=== PATIENT | male | born 1935 | race Caucasian/White ===

== ENCOUNTER → 2017-05-29 | Outpatient (CLI) | payer OTHER | LOC: BRMIMAGING 10:33 | PROVIDERS: ATTEND Registered Nurse | DX: R05 Cough (principal); R91.8 Other nonspecific abnormal finding of lung field | CPT/HCPCS: 71020-PO ==

== ENCOUNTER → 2017-09-10 | Outpatient (CLI) | payer OTHER | LOC: BRMIMAGING 10:29 | PROVIDERS: ATTEND Family Medicine | DX: R51 Headache (principal); Z80.7 Family history of other malignant neoplasms of lymphoid, hematopoietic and related tissues | CPT/HCPCS: 70260-PO ==

== ENCOUNTER 2018-04-03 16:12 | Inpatient (IN) | payer OTHER ==
--- NOTE | 2018-04-03 16:31 | EDPHY ---
HPI/HX/ROS/PE/MDM Narrative: CHIEF COMPLAINT: Dyspnea, hypoxemia HPI: The patient is an 82 y/o male arriving with his at the recommendation of his water main inspector for hypoxemia and pleural effusions seen on CT last week. His medical history includes CAD post stent, hypertension, diabetes type 2, and myelodysplastic syndrome for which he started chemotherapy 3 weeks ago. His chemotherapy is currently suspended due to a low WBC count. He's had increasing shortness of breath over the last few weeks so his oncologist at [facility] performed a chest CT last week. This showed bilateral plural effusions and he was referred to his water main inspector, Dr. Gamble, who he saw today. During that visit they noted his SpO2 was 84% and given this with his abnormal CT he was referred to the ED. He says, "I feel okay, but I can't do anything without getting very short of breath" like walking to the bathroom. Prior to these symptoms, he only used O2 at night and is now requiring it during the day. He reports associated bilaterally foot swelling. He started 20mg Lasix QD 3 days ago and has dropped some weight since then. No cough, fever, chest pain, abdominal pain, vomiting, diarrhea. REVIEW OF SYSTEMS: A comprehensive 10 system review of systems is otherwise negative aside from elements mentioned in the history of present illness. PMH: CAD post distal stent, hypertension, diabetes type 2, lower GI bleed following polypectomy, bipolar disorder, myelodysplastic syndrome on chemotherapy. SOCIAL HISTORY: at bedside. Lives in [place]. Retired. PHYSICAL EXAM: General:Patient is alert, in no acute distress. ENT:Eyes are normal to inspection. ENT inspection normal. Neck: Normal inspection. Full range of motion. Respiratory:No respiratory distress. No wheeze or rales and good movement bilaterally. Cardiovascular: Regular rate and rhythm. Strong peripheral pulses. Normal cap refill. Abdomen:The abdomen is nontender to palpation. There are no peritoneal signs. Back: Normal to inspection. No tenderness to palpation. Skin: Normal color. No rash. Warm and dry. Extremities: 1-2+ pedal edema bilaterally. Full range of motion. Neuro: Oriented x3. Normal motor function. Normal sensory function. ED Course: This is an 82 y/o male with myelodysplastic syndrome who started chemotherapy 3 weeks ago and presents with a couple-week history of progressive exertional dyspnea, documented bilateral pleural effusions on CT last week, and hypoxemia in the 80%-range at his water main inspector appointment today. He otherwise denies symptoms. Lung sounds are clear bilaterally. Plan for IV, labs, EKG, chest x- ray. The 12 lead EKG was interpreted by myself. See hard copy and/or "tracemaster" electronic copy for interpretation. Chest x-ray: bilateral basilar effusions. POC troponin negative. Pancytopenia. Spoke with hospitalist service. Dr. Lorenzana accepts admission. - Data Points Imaging Results: Imaging Impressions Chest X-Ray 04/03/18 16:37 Impression: Query basilar pneumonia with pleural effusions. The patient's cardiac failure is currently compensated. Imaging: I viewed and interpreted images myself Laboratory Results: Laboratory Results 04/03/18 16:35 04/03/18 16:35 04/03/18 04/03/18 04/03/18 16:45 16:35 16:35 WBC 2.10 10^3/uL L 10^3/uL (3.80-9.50) RBC 2.30 10^6/uL L 10^6/uL (4.40-6.38) Hgb 8.6 g/dL L g/dL (13.7-17.5) Hct 26.6 % L % (40.0-51.0) MCV 115.7 fL H fL (81.5-99.8) MCH 37.4 pg H pg (27.9-34.1) MCHC 32.3 g/dL L g/dL (32.4-36.7) RDW 18.4 % H % (11.5-15.2) Plt Count 95 10^3/uL L 10^3/uL (150-400) MPV 12.8 fL H fL (8.7-11.7) Neut % (Auto) Not Reported Lymph % (Auto) Not Reported [place] % (Auto) Not Reported Eos % (Auto) Not Reported Baso % (Auto) Not Reported Nucleat RBC Rel Count Not Reported Absolute Neuts (auto) Not Reported Absolute Lymphs (auto) Not Reported Absolute Monos (auto) Not Reported Absolute Eos (auto) Not Reported Absolute Basos (auto) Not Reported Absolute Nucleated RBC Not Reported Immature Gran % Not Reported Seg Neutrophils % 42.3 % % Band Neutrophils % 0.0 % % Lymphocytes % 39.8 % % Monocytes % 18.5 % % Eosinophils % 0.0 % % Basophils % 0.0 % % Immature Gran # Not Reported Absolute Seg Neuts 0.89 10^/uL L 10^/uL (1.70-6.50) Absolute Lymphocytes 0.82 10^3/uL L 10^3/uL (1.00-3.00) Absolute Monocytes 0.39 10^3/uL 10^3/uL (0.30-0.80) Platelet Estimate ADEQUATE (ADEQ) Giant Platelets PRESENT H Polychromasia 2+ H Oval Macrocytes 2+ H Smear Review By Pending Sodium 138 mEq/L mEq/L (135-145) Potassium 4.0 mEq/L mEq/L (3.3-5.0) Chloride 102 mEq/L mEq/L (97-110) Carbon Dioxide 31 mEq/l mEq/l (22-31) Anion Gap 5 mEq/L L mEq/L (8-16) BUN 13 mg/dL mg/dL (7-23) Creatinine 0.8 mg/dL mg/dL (0.7-1.3) Estimated GFR > 60 Glucose 100 mg/dL mg/dL (70-100) Calcium 8.2 mg/dL L mg/dL (8.5-10.4) POC Troponin I 0.02 ng/mL ng/mL (0.00-0.08) Troponin I 0.014 ng/mL ng/mL (0.000-0.034) Point of Care Test Results: Chemistry 04/03/18 16:45 POC Troponin I 0.02 ng/mL ng/mL (0.00-0.08) General Time Seen by Provider: 04/03/18 16:28 Initial Vital Signs: Initial Vital Signs Temperature (C) 37 C 04/03/18 16:18 Heart Rate 54 L 04/03/18 16:18 Respiratory Rate 20 04/03/18 16:18 Blood Pressure 139/100 H 04/03/18 16:18 O2 Sat (%) 90 L 04/03/18 16:18 O2 Delivery Mode Nasal Cannula O2 (L/minute) 2 Allergies/Adverse Reactions: celecoxib [From Celebrex] Allergy (Verified 04/03/18 16:13) oxycodone HCl [From Percocet] Allergy (Verified 04/03/18 16:13) Home Medications: Medication Instructions Recorded Aspirin [Aspirin 81mg (*)] 81 mg PO HS 10/26/15 Nebivolol HCl [Bystolic] 10 mg PO BID@08,12 10/26/15 risperiDONE [Risperdal 1mg (*)] 1 mg PO HS 10/26/15 Androgel 1.62% Pump 1 desmond TP HS 04/03/18 Cyanocobalamin [Vitamin B12 (*)] 1,000 mcg PO DAILY 04/03/18 Donepezil HCl [Aricept 5 MG (*)] 5 mg PO HS 04/03/18 Furosemide [Lasix 20 MG (*)] 20 mg PO DAILY 04/03/18 Herbals/Supplements -Info Only 1 ea PO DAILY 04/03/18 Losartan Potassium 100 mg PO DAILY 04/03/18 Memantine HCl 10 mg PO BID 04/03/18 Multivitamins [Multivitamin (*)] 1 each PO DAILY 04/03/18 Nitroglycerin [Nitrostat 0.4 mg 0.4 mg SL Q5M PRN 04/03/18 (*)] Potassium Cl [Klor-Con] 10 meq PO DAILY 04/03/18 Ranitidine HCl 300 mg PO HS 04/03/18 Departure - Departure Disposition: [facility] Clinical Impression: Pancytopenia, Exertional dyspnea, Bilateral pleural effusion, Hypoxemia Condition: Fair Report Scribed for: Campbell Pagan Report Scribed by: Meche Regan Date of Report: 04/03/18 Time of Report: 16:31
[2018-04-03 17:28] LABS: PLATELET COUNT 95 10^3/uL (150-400)
[2018-04-03] MEDS ORDERED: ONDANSETRON 4 MG/2 ML VIAL IVP PRN (21:33)
[2018-04-03] MEDS ORDERED: ONDANSETRON DISINTEGRATING 4 MG TAB PO PRN (21:33)
--- NOTE | 2018-04-03 21:35 | CPEKG ---
Test Reason : OPEN Blood Pressure : / mmHG Vent. Rate : 056 BPM Atrial Rate : 056 BPM P-R Int : 153 ms QRS Dur : 099 ms QT Int : 443 ms P-R-T Axes : 068 017 044 degrees QTc Int : 428 ms Sinus rhythm Confirmed by Campbell Pagan ([id number]) on 04/03/2018 9:34:06 PM Referred By: Confirmed By:Campbell Pagan
[2018-04-03] MEDS ORDERED: FAMOTIDINE 20 MG TAB PO SCH (22:00)
[2018-04-03] MEDS: DONEPEZIL HCL 5 MG TAB PO SCH (22:15)
[2018-04-03] MEDS: ASPIRIN 81 MG CHEWABLE TAB PO SCH (22:15)
[2018-04-03] MEDS: risperiDONE 1 MG TAB PO SCH ×2 (22:16→22:24)
[2018-04-03] MEDS: MEMANTINE HCL 5 MG TAB PO SCH (22:16)
--- NOTE | 2018-04-03 23:05 | GHP ---
DATE OF ADMISSION: 04/03/2018 The patient is a pleasant 82-year-old gentleman with a history of myelodysplastic syndrome as well as remote coronary artery disease, who presents to the ER via his state trooper's office. He has recent ly been initiated chemotherapy for MDS. With his oncologist in the [facility], the exact regimen i s unknown and the recent round was held because of low cell count. He notes dyspnea on exertion, deya lly predominantly where he feels as if every time he would get up and walk from 1 room to another in the house, after a few steps, like he had run a 100 yard dash. He has not had chest pain. He has ne w lower extremity edema and he has been prescribed Lasix over the last couple of days. He does not h ave fever, chills, cough, or sputum. He was seen by his oncologist recently and on the , he had a CT scan showing large pleural effusions. I believe this was the cause for the initiation of Lasix. The heretofore does not have a known diagnosis of heart failure and I did discuss the case with his c ardiologist, Dr. Gamble, this evening. He has not had melena or bright red blood per rectum. Notably, his heart rate is in the 50s and his hemoglobin has fallen from 14 a couple of years ago to 8.6. REVIEW OF SYSTEMS: A complete 10-point review of systems conducted and negative except as noted in t he HPI. PAST MEDICAL HISTORY: 1. Coronary artery disease with remote stent. 2. Myelodysplastic syndrome. 3. Lower GI bleed from a polypectomy site. 4. History of colon polyps. 5. Type 2 diabetes, diet controlled. 6. Bipolar. 7. Hypertension. 8. History hand surgery. 9. Tonsillectomy. ALLERGIES: Celebrex. MEDICATIONS: Nebivolol, nitroglycerin, AndroGel, aspirin, cyanocobalamin, donepezil, furosemide, [place], memantine, multivitamin, potassium, ranitidine, risperidone. SOCIAL HISTORY: No tobacco, no alcohol. 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 Lives in [place]. FAMILY HISTORY: Daughter is at bedside and healthy. PHYSICAL EXAMINATION: VITAL SIGNS: Temp 37, blood pressure 139/100, now 147/53, pulse 54, breathing 20 times a minute, 90% on room air. GENERAL: No acute distress. HEENT: Sclerae anicteric. Oroph arynx clear. Mucous membranes moist. NECK: Supple without lymphadenopathy or JVD. LUNGS: Clear t o auscultation bilaterally. HEART: S1, S2 without murmurs. ABDOMEN: Soft, nontender, nondistended . LOWER EXTREMITIES: Showed 2+ edema bilaterally. Calves are nontender. SKIN: Without rash. BISI ROLOGIC: Exam is nonfocal. Chest x-ray interpreted by me shows very small left-sided pleural effusion. Otherwise, no acute card iopulmonary disease. EKG interpreted by me shows sinus at 56 with normal axis and intervals and no ST or T-wave changes. LABS: White count 2, hemoglobin 8.6, MCV elevated at 115, platelets are 95,000. Sodium 138, potassi um 4.0, chloride 102, bicarb 31, BUN 13, creatinine 0.8. Troponin 0.014, calcium is 8.2. I discussed the case with Dr. Campbell Pagan as well as his state trooper. ASSESSMENT/PLAN: An 82-year-old gentleman here with: 1. Dyspnea: There is a long differential for this that includes congestive heart failure, ischemia, pulmonary embolism. I do think that the most likely diagnosis is in the context of his new hemoglob in of 8.6, his heart rate of 50s is inadequate. I think pulmonary embolism needs to be ruled out and I have therefore ordered a CT angio of the chest and we will follow him on telemetry to ensure that there is no coleman or tachyarrhythmias. 2. Myelodysplastic sydnrome: Chemotherapy is on hold. His counts do not require action at this carmel e. 3. Pleural effusion: This is small and not the cause. I explained this to the patient. 4. Anemia: I do not believe the patient is actively bleeding. However, we will follow his labs in the morning. 5. Prophylaxis SCDs: Pharmacologic prophylaxis is on hold. 6. Edema: I will check an albumin and an echocardiogram. We will hold off on the lower extremity u ltrasound at this time. DISPOSITION: Observation status. /[id number]/MODL
[2018-04-04 05:09] LABS: INR 1.17 (0.83-1.16); PROTIME(PATIENT) 15.1 SEC (12.0-15.0)
[2018-04-04 05:25] LABS: PLATELET COUNT 80 10^3/uL (150-400)
[2018-04-04] MEDS: LOSARTAN POTASSIUM 50 MG TAB PO SCH (08:29)
[2018-04-04] MEDS: MULTIVITAMINS 1 EACH TAB PO SCH (08:29)
[2018-04-04] MEDS: POTASSIUM CL 10 MEQ TAB PO SCH (08:29)
[2018-04-04] MEDS: MEMANTINE HCL 5 MG TAB PO SCH ×2 (08:29→21:14)
[2018-04-04] MEDS: CYANO/VITAMIN B12 1000 MCG TAB PO SCH (08:29)
[2018-04-04] MEDS ORDERED: Herbals/Supplements -Info Only PO SCH (09:00)
[2018-04-04] MEDS ORDERED: FUROSEMIDE 20 MG TAB PO SCH (09:00)
[2018-04-04] MEDS ORDERED: IOPAMIDOL (ISOVUE 370) 100 ML BTL IV ONE (10:05)
--- NOTE | 2018-04-04 10:29 | ECHO ---
[email or web address] [address] [address] Main: [phone] Fax: [email or web address] Echocardiogram Name: NICOLE MORAN MR#: [id number] Study Date: 04/04/2018 Study Time: 09:24 AM Date of : 1935 Age: 82 year(s) Height: 182.9 cm (72 in.) Weight: 97.98 kg (216 lb.) BSA: 2.2 m2 Gender: Male Examination: Echo Indication: Coronary artery disease, Dyspnea on exertion Image Quality: Technically Difficult Contrast: Requested by: Giorgio Lorenzana BP: 150 mmHg/70 mmHg Heart Rate: Rhythm: Indication: Coronary artery disease, Dyspnea on exertion Procedure Staff Peer Health Promoter: Bebe Hong RUST Reading Physician: Jake Gibson MD Requesting Provider: Conclusions: Normal size left ventricle. Normal global systolic LV function. The ejection fraction is visually estimated to be 55 %. No obvious regional wall motion abnormality however due to poor endocardial cannot rule out. Normal diastolic LV function. Mild mitral valve regurgitation is present. Aortic sclerosis is present. Trivial aortic valve regurgitation. No aortic valve stenosis is present. Trivial tricuspid valve regurgitation. Pulmonary artery pressure is not obtained due to inadequate TR jet. Measurements: Chambers Valvular Assessment AV/MV Valvular Assessment TV/PV Normal Normal Normal Name Value Range Name Value Range Name Value Range Ao [place] (MM): 3.6 cm (2.2 cm-3.7 AV Vmax: 1.61 m/s (1 m/s-1.7 PV Vmax: 1.06 m/s (0.6 m/s-0.9 cm) m/s) m/s) IVSd (2D): 1.0 cm (0.6 cm-1.1 AV maxP mmHg ( - ) PV PGmax: 4 mmHg ( - ) cm) LVOT Vmax: 0.91 m/s (0.7 m/s-1.1 LVDd (2D): 4.7 cm (4.2 cm-5.9 m/s) cm) DANIEL (Vmax): 1.8 cm2 ( - ) LVDs (2D): 3.0 cm (2.1 cm-4 MV E Vmax: 1.01 m/s ( - ) cm) MV A Vmax: 0.84 m/s ( - ) LVPWd (2D): 1.0 cm (0.6 cm-1 MV E/A: 1.20 ( - ) cm) LVOTd 2.0 cm 2.0 cm mm LVEF (MOD4): 53 % (>=55 %) Visual EF: 55 % RVDd(2D): 3.9 cm (1.9 cm-3.8 cmmm) Patient: NICOLE MORAN Study Date: 04/04/2018 Page 1 of 2 09:24 AM Continued Measurements: Chambers Valvular Assessment AV/MV Name Value Name Value LADs: 3.3 cm MV DecTime: 208 m/s LADs Lon.3 cm MV E/E' Septal: 12.50 LA Area: 23.5 cm2 MV E/E' Lateral: 8.00 TAPSE: 2.9 cm Additional Vessels Name Value Ao Ascendin.7 cm Findings: Left Ventricle: Normal size left ventricle. No LV hypertrophy. Normal global systolic LV function. The ejection fraction is visually estimated to be 55 %. No obvious regional wall motion abnormality however due to poor endocardial cannot rule out. Normal diastolic LV function. Right Ventricle: Right ventricle is normal size and function from the subcostal window. Left Atrium: The left atrium is normal in size. Right Atrium: Grossly normal RA size. Mitral Valve: There is mild thickening of the mitral valve leaflets. Mild mitral valve regurgitation is present. No mitral stenosis is present. Aortic Valve: The aortic valve is tri-leaflet. Aortic sclerosis is present. Trivial aortic valve regurgitation. No aortic valve stenosis is present. Tricuspid Valve: Tricuspid valve not well visualized. Trivial tricuspid valve regurgitation. Pulmonary artery pressure is not obtained due to inadequate TR jet. Pulmonic Valve: Pulmonary valve not well visualized. Aorta: Normal size aortic root measuring 3.6 cm. Normal size ascending aorta measuring 3.7 cm. IVC: The IVC is dilated. Pericardium: No pericardial effusion. There is a pleural effusion present. (No Signature Object) Patient: NICOLE MORAN Study Date: 04/04/2018 Page 2 of 2 09:24 AM [id number]
[2018-04-04] MEDS ORDERED: ALBUMIN 25% 100 ML IV ONE (14:15)
--- NOTE | 2018-04-04 14:39 | HOSPPROG ---
Hospitalist Progress Note Assessment/Plan: Dyspnea with acute on chronic hypoxemia respiratory failure - On 2 LPM O2 at night. Recent outpt CT and CTA here (personally reviewed/interpreted) show mod- lg b/l pleural effusions. No PE. Worsening anemia may be contributing to his dyspnea. Also consider cardiac ischemia given h/o CAD with prior stent and BLAKE. Initial trop neg. He was to have a nuclear stress test 2 days [facility], but this was deferred as pt was hypoxemic. Echo reviewed: nl ef, nl diastolic function, no WMA. - requiring 1 LPM O2 at rest, 2 LPM with activity, currently relatively asymptomatic - check bnp - Lasix 20 mg IV now Pleural effusions - b/l, R>L. Suspect transudative process. Hypoalbuminemia doesn't commonly cause pleural fluid, but this is possibly the cause. Also consider malignant effusion vs diastolic HF. Echo as above. - send bnp - Lasix as above - relatively asymptomatic, will defer thoracentesis for now - O2 as needed LE edema - likely due to hypoalbuminemia - discussed increased protein intake - will give a dose of IV albumin while here Pancytopenia - suspect 2/2 chemo, hgb down to 7.7 from 8.6 yesterday. Plts trending down. No hypotension, HR only in the 50's - consider prbc's if hgb continues to trend down, which may help improve his protein status and symptoms Neutropenia - ANC ~500, no fevers - neutropenic precautions Myelodysplastic syndrome - chemo on hold due to neutropenia. Will notify oncology of admission. CAD with h/o PCI - chest pain free. Initial troponin negative, EKG reviewed and non-ischemic. - repeat trop - outpt stress test - cont ASA, OZIEL, statin, BB held due to anemia and low HR Full code DVT PPLX - Defer Lovenox with low plts and low hgb, SCDs for now Dispo - inpt, PT/OT evals Subjective: Pt feels ok at rest, denies CP or SOB. Gets dyspneic with exertion , did not require >2 LPM O2 while ambulating with PT. No bleeding. No abdominal pain, N/V. Reports LE edema x2 weeks. Objective: Vital Signs Temp Pulse Resp BP Pulse Ox 36.5 C 54 L 18 164/62 H 100 04/04/18 11:21 04/04/18 11:21 04/04/18 11:21 04/04/18 11:21 04/04/18 11:21 Laboratory Results 04/04/18 04:08 04/04/18 04:08 04/03/18 04/04/18 04/05/18 05:59 05:59 05:59 Intake Total 500 Balance 500 PT 15.1 SEC (12.0-15.0) H 04/04/18 04:30 INR 1.17 (0.83-1.16) H 04/04/18 04:30 - Physical Exam Constitutional: no apparent distress Eyes: PERRL Ears, Nose, Mouth, Throat: moist mucous membranes Cardiovascular: regular rate and rhythym Respiratory: no respiratory distress, other (decreased at bases b/l) Skin: warm Musculoskeletal: full muscle strength, other (2+ b/l LE edema) Neurologic: AAOx3 Psychiatric: interacting appropriately ICD10 Worksheet Patient Problems: Problems Problem Status Onset Bilateral pleural effusion Acute Exertional dyspnea Acute Hypoxemia Acute Pancytopenia Acute Lower gastrointestinal hemorrhage Acute
[2018-04-04] MEDS: FUROSEMIDE 20 MG/2 ML VIAL IVP SCH (14:46)
--- NOTE | 2018-04-04 15:57 | ASMTCMCOM ---
CM Note CM Note Notes: Pt was admitted with dyspnea, neutropenia and bilateral pleural effusion. He has a hx of myelodysplastic syndrome. His chemo is on hold, last treatment 3 weeks ago. May need home care. He lives alone in [place]. CM will follow for any d/c needs. D/C plan: TBD, likely home care Date Signed: 04/04/2018 03:56 PM Electronically Signed By:KT Rios
[2018-04-04] MEDS: ASPIRIN 81 MG CHEWABLE TAB PO SCH (21:14)
[2018-04-04] MEDS: FAMOTIDINE 20 MG TAB PO SCH (21:14)
[2018-04-04] MEDS: DONEPEZIL HCL 5 MG TAB PO SCH (21:14)
[2018-04-04] MEDS: risperiDONE 1 MG TAB PO SCH (21:14)
[2018-04-04] MEDS: ACETAMINOPHEN 325 MG TAB PO PRN (21:15)
[2018-04-04] MEDS: TESTOSTERONE 1.62% TP SCH (21:17)
[2018-04-05 05:48] LABS: PLATELET COUNT 78 10^3/uL (150-400)
[2018-04-05] MEDS: CYANO/VITAMIN B12 1000 MCG TAB PO SCH (08:00)
[2018-04-05] MEDS: FUROSEMIDE 20 MG/2 ML VIAL IVP SCH (08:00)
[2018-04-05] MEDS: MULTIVITAMINS 1 EACH TAB PO SCH (08:00)
[2018-04-05] MEDS: POTASSIUM CL 10 MEQ TAB PO SCH (08:00)
[2018-04-05] MEDS: MEMANTINE HCL 5 MG TAB PO SCH ×2 (08:00→20:00)
[2018-04-05] MEDS: LOSARTAN POTASSIUM 50 MG TAB PO SCH (08:00)
--- NOTE | 2018-04-05 09:24 | PDMN ---
Medical Necessity Medical necessity: [facility] M540 Pleural Effusion: 82 y/o w/ myelodysplastic syndrome presents w/ dyspnea, pleural effusion and anemia. Dyspnea with acute on chronic hypoxemia respiratory failure - oxygen required. Recent outpt CT and CTA here show mod-lg b/l pleural effusions (malignant vs. HF). Worsening anemia, consider cardiac ischemia. Hypoalbuminemia, admin IV albumin, start lasix, neutropenic wbc 1.71, neutropenic precautions, plt, wbc and H/H trending down, H/H now 7.6/23.2 (dropped overnight), BNP elevated 3230, O2 required, PT/ OT evals ordered, Pt w/ hx CAD. Switch to IP status per MD order 04/04/18 @ 8808 for ongoing monitoring and treatment.
--- NOTE | 2018-04-05 10:09 | HOSPPROG ---
Hospitalist Progress Note Assessment/Plan: Dyspnea with acute on chronic hypoxemia respiratory failure - On 2 LPM O2 at night at baseline. CTA neg PE, but suspect moderate b/l pleural effusions are contributory. Worsening anemia also likely factor. Consider cardiac ischemia given h/o CAD with prior stent and BLAKE. Initial trop neg. He was to have a nuclear stress test 2 days [employer], but this was deferred as pt was hypoxemic. Echo reviewed: nl ef, nl diastolic function, no WMA. BNP >3K. Symptoms improved today. - 2 LPM, RT to see to help arrange portable O2 - cont IV Lasix - will give 1 u prbc's given down-trending hgb and CAD - cont to hold BB, symptoms are improved with better HR response Pleural effusions - b/l, R>L. Suspect transudative process. Hypoalbuminemia doesn't commonly cause pleural fluid, but this could be the cause. Also consider malignant effusion vs diastolic HF with elevated BNP. Echo as above. - cont Lasix - defer thoracentesis for now, favor diuresis - wean O2 as able LE edema - likely due to hypoalbuminemia - discussed increased protein intake - received IV albumin yesterday - prbc's will likely help maintain intravascular volume Pancytopenia - suspect 2/2 chemo, hgb down to 7.6 from 8.6. Plts trending down. No hypotension, HR only in the 50's - prbc's as above - trend plts Neutropenia - ANC ~490, no fevers - neutropenic precautions Myelodysplastic syndrome - chemo on hold due to neutropenia. Will notify oncology of admission. CAD with h/o PCI - chest pain free. troponin negative x2, EKG reviewed and non- ischemic. - f/u with cards for outpt stress test, discussed with Dr. Callahan - cont ASA, OZIEL, statin, BB held due to anemia and low HR Full code DVT PPLX - Defer Lovenox with low plts and low hgb, SCDs for now Dispo - inpt, PT/OT evals recommending home health Subjective: Pt feels better. His HR went up to the 60's with ambulation and his BLAKE is improved. Still with LE edema. Denies orthopnea or PND. No CP or SOB at rest. Objective: Vital Signs Temp Pulse Resp BP Pulse Ox 36.4 C 56 L 21 H 128/50 H 96 04/05/18 09:25 04/05/18 09:25 04/05/18 09:25 04/05/18 09:25 04/05/18 09:25 Laboratory Results 04/05/18 04:20 04/05/18 04:20 04/04/18 04/05/18 04/06/18 05:59 05:59 05:59 Intake Total 800 300 Balance 800 300 PT 15.1 SEC (12.0-15.0) H 04/04/18 04:30 INR 1.17 (0.83-1.16) H 04/04/18 04:30 - Physical Exam Constitutional: no apparent distress Eyes: PERRL Ears, Nose, Mouth, Throat: moist mucous membranes Cardiovascular: regular rate and rhythym Respiratory: no respiratory distress, clear to auscultation Gastrointestinal: normoactive bowel sounds, soft, non-tender abdomen Skin: warm Musculoskeletal: full muscle strength, other (2+ b/l LE edema) Neurologic: AAOx3 Psychiatric: interacting appropriately ICD10 Worksheet Patient Problems: Problems Problem Status Onset Bilateral pleural effusion Acute Exertional dyspnea Acute Hypoxemia Acute Pancytopenia Acute Lower gastrointestinal hemorrhage Acute
[2018-04-05] MEDS ORDERED: POTASSIUM CL 10 MEQ TAB PO SCH (10:16)
[2018-04-05] MEDS ORDERED: PROTOCOL POTASSIUM 1 DOSE MISC PRN (10:17)
[2018-04-05] MEDS ORDERED: POTASSIUM CL 10 MEQ TAB PO ONE (11:49)
--- NOTE | 2018-04-05 12:01 | ASMTCMCOM ---
CM Note CM Note Notes: Patient seen in interdisciplinary rounds. PT HHC recommended Family choose [facility]. Referral via allscripts. Plan: DC to home with HHC when medically cleared for discharge. Date Signed: 04/05/2018 12:01 PM Electronically Signed By:Beverly Morfin RN
[2018-04-05] MEDS: ACETAMINOPHEN 325 MG TAB PO PRN (20:00)
[2018-04-05] MEDS: risperiDONE 1 MG TAB PO SCH (20:00)
[2018-04-05] MEDS: DONEPEZIL HCL 5 MG TAB PO SCH (20:00)
[2018-04-05] MEDS: ASPIRIN 81 MG CHEWABLE TAB PO SCH (20:00)
[2018-04-05] MEDS: FAMOTIDINE 20 MG TAB PO SCH (20:00)
[2018-04-05] MEDS: TESTOSTERONE 1.62% TP SCH (22:55)
[2018-04-06 04:38] LABS: PLATELET COUNT 76 10^3/uL (150-400)
[2018-04-06 08:08] VITALS: BP 136/62
--- NOTE | 2018-04-06 09:52 | PDHOMEO2F ---
Home Oxygen Face to Face Home Orders: I certify that a physician or a nurse practitioner or physician's news assistant has had a [id number] encounter with this patient on the date of this order due to the diagnosis listed, which relates to the primary reason the patient requires home oxygen. Alternative treatments have been tried, or considered, and deemed ineffective. It is anticipated that supplemental oxygen will result in improvement with treatment. Home oxygen qualifying diagnosis: bilateral pleural effusions, chronic hypoxemia SpO2 on room air (%): 87 Frequency of home oxygen needed: with activity, during sleep Home oxygen liters per minute: 2 LPPM Home oxygen delivery device: nasal cannula Concentrator: Yes E-tanks for mobility and back up: Yes If ordering portable O2, is the patient mobile in the home?: Yes I certify that, based on these findings, the home oxygen is medically necessary for this patient for the following length of time. Length of time home oxygen needed: 99 years
--- NOTE | 2018-04-06 09:53 | PDIAF ---
- Diagnosis Diagnosis: myelodysplastic syndrome, pancytopenia, CAD Code Status: Full Code - Medication Management Discharge Medications: Medications to Continue on Transfer Aspirin [Aspirin 81mg (*)] 81 mg PO HS 10/26/15 [Last Taken 10/25/15] risperiDONE [Risperdal 1mg (*)] 1 mg PO HS 10/26/15 [Last Taken 04/02/18] Androgel 1.62% Pump 1 desmond TP HS 04/03/18 [Last Taken Unknown] Cyanocobalamin [Vitamin B12 (*)] 1,000 mcg PO DAILY 04/03/18 [Last Taken Unknown ] Donepezil HCl [Aricept 5 MG (*)] 5 mg PO HS 04/03/18 [Last Taken Unknown] Furosemide [Lasix 20 MG (*)] 20 mg PO DAILY 04/03/18 [Last Taken 04/03/18] Herbals/Supplements -Info Only 1 ea PO DAILY 04/03/18 [Last Taken Unknown] Losartan Potassium 100 mg PO DAILY 04/03/18 [Last Taken 04/03/18] Memantine HCl 10 mg PO BID 04/03/18 [Last Taken 04/03/18] Multivitamins [Multivitamin (*)] 1 each PO DAILY 04/03/18 [Last Taken Unknown] Nitroglycerin [Nitrostat 0.4 mg (*)] 0.4 mg SL Q5M PRN 04/03/18 [Last Taken Unknown] Potassium Cl [Klor-Con 10 meq (RX)] 10 meq PO DAILY 04/03/18 [Last Taken ] Ranitidine HCl 300 mg PO HS 04/03/18 [Last Taken 04/02/18] Acetaminophen [Tylenol 325mg (*)] 650 mg PO Q4HRS PRN tab 04/06/18 [Last Taken Unknown] Discharge Medications: Refer to the Discharge Home Medication list for PRN reason. PICC Care - Routine: N/A - Orders Services needed: Home Care, Registered Nurse, Physical Therapy, Occupational Therapy Home Care Face to Face: I certify that this patient was under my care and that I had the required [id number] encounter meeting the encounter requirements on the discharge day. My findings support the fact that the patient is homebound as defined in Home Care Face to Face Continued: CMS Chapter 7 Medicare Benefits Manual 30.1.1 , The condition of the patient is such that there exists a normal inability to leave home and consequently, leaving home would require a considerable and taxing effort. Isolation Type: Chemotherapy Isolation, Neutropenic Isolation Diet Recommendation: cardiac -low fat low salt Additional Instructions: Resume Lasix 20 mg daily with the potassium supplement. Continue to hold the Bystolic until follow up with Dr. Vinson. Outpatient stress test. Follow up with your primary oncologist. O2 at night and with activity. - Labs/Radiology BMP Date: 04/13/18 (results to Dr. Vinson) CBC w/diff Date: 04/13/18 (results to primary oncologist) - Follow Up Care Current Providers and Referrals: JORGE KNUTSON [Primary Care Provider] - As per Instructions Mike Vinson MD [Medical Doctor] -
[2018-04-06] MEDS: FUROSEMIDE 20 MG/2 ML VIAL IVP SCH (10:06)
[2018-04-06] MEDS: MEMANTINE HCL 5 MG TAB PO SCH (10:07)
[2018-04-06] MEDS: MULTIVITAMINS 1 EACH TAB PO SCH (10:07)
[2018-04-06] MEDS: CYANO/VITAMIN B12 1000 MCG TAB PO SCH (10:07)
[2018-04-06] MEDS: LOSARTAN POTASSIUM 50 MG TAB PO SCH (10:07)
--- NOTE | 2018-04-06 10:46 | ASMTLACE ---
LACE Length of stay for Answers: 1 day current admission Acuity / Level of Answers: Yes Care: Did the patient have an inpatient admission? 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
--- NOTE | 2018-04-06 10:49 | ASMTCMCOM ---
CM Note CM Note Notes: Medically cleared for discharge to home. Final orders via allscripts to [facility]. Case management available should other needs arise. Plan: DC to home with [facility] Date Signed: 04/06/2018 10:48 AM Electronically Signed By:Beverly Morfin RN
--- NOTE | 2018-04-06 14:32 | GDS ---
DISCHARGE DIAGNOSES: 1. Dyspnea on exertion secondary to anemia and bilateral pleural effusions. 2. Bilateral pleural effusions in the setting of hypoalbuminemia and possibly diastolic heart failur e. 3. Lower extremity edema, again, likely secondary to hypoalbuminemia. 4. Pancytopenia secondary to chemotherapy. 5. Myelodysplastic syndrome followed by Oncology in the [facility] system. 6. Coronary artery disease with history of percutaneous coronary intervention, with remote stenting. 7. Neutropenia. His ANC at [facility] was 490. On the day of discharge, his ANC has improved to 800. CONSULTANTS: None. HISTORY: For details, please see history and physical dated April 03, 2018. In brief, the patie kamila is an 82-year-old male with history of myelodysplastic syndrome and coronary artery disease, who p resented to the emergency department with dyspnea on exertion. He was admitted to the hospital for f urther management. HOSPITAL COURSE: Patient was admitted to the Oncology unit. It is suspected that his increased dysp lois is related to his worsening anemia in the setting of chemotherapy, with inadequate heart rate res ponse due to beta blockade. In addition, he has moderate bilateral pleural effusions in the setting of hypoalbuminemia. Echocardiogram was obtained. He had a normal ejection fraction and reportedly n ormal diastolic dysfunction. However, his BNP was elevated over 3000, with normal renal function. Chandan fernandez was diuresed with IV Lasix. He received 1 unit of blood for a hemoglobin of 7.6 in the setting of coronary artery disease. His hemoglobin improved to 8.9. His beta-brenda was held, and with slight ly increased heart rate and diuresis, his dyspnea symptoms have nearly completely resolved. He did h ave a CTA that was negative for pulmonary embolism. He was requiring 2 L/minute of oxygen on admissi on, though he is saturating 92% to 95% on room air at rest. He does desat to 87% with room air with activity, and therefore, will be discharged with home oxygen to be used at nighttime and with activit y at 2 L/minute. With respect to his coronary artery disease, he had 2 negative troponins, and his E KG was nonischemic. He had planned for an outpatient nuclear medicine stress test. I discussed the case with Cardiology, and they feel outpatient stress testing is appropriate after his respiratory st atus is stabilized. Cardiology also agrees with holding his beta brenda. Bystolic will continue to be held at discharge, and once his blood counts and symptoms are improved, he may resume this at the discretion of his outpatient agriscience instructor. DISPOSITION: Patient is discharged home in stable condition with home health care, RN, PT/OT, as wel l as home oxygen 2 L/minute at nighttime and at rest. FOLLOWUP: 1. Dr. Campbell Moore, primary care. 2. Dr. Mike Gamble, cardiology, for outpatient nuclear medicine stress test. 3. Primary oncologist in the [facility] system. DISCHARGE MEDICATIONS: Please see [facility] for completed outpatient medication list. His Bystolic i s held at discharge. He will continue Lasix 20 mg daily with potassium supplement. He will continue all other outpatient medications as previously prescribed. /[id number]/MODL
== END 2018-04-06 17:51 | disposition home health service (06) | DRG 809 ==
LOC: INTOOBSV 18:42 → F1N 20:20 → OBSVTOIN 04-04 14:47
PROVIDERS: ADMIT Internal Medicine; ATTEND Internal Medicine
PROC: 30233N1 Transfusion of Nonautologous Red Blood Cells into Peripheral Vein, Percutaneous Approach (ICD-10-PCS; principal; 2018-04-05)
DX: D61.810 Antineoplastic chemotherapy induced pancytopenia (principal); J90 Pleural effusion, not elsewhere classified; I11.0 Hypertensive heart disease with heart failure; I50.30 Unspecified diastolic (congestive) heart failure; E88.09 Other disorders of plasma-protein metabolism, not elsewhere classified; D46.9 Myelodysplastic syndrome, unspecified; I25.10 Atherosclerotic heart disease of native coronary artery without angina pectoris; D70.9 Neutropenia, unspecified; E11.9 Type 2 diabetes mellitus without complications; Z95.5 Presence of coronary angioplasty implant and graft
CPT/HCPCS: 84484-PO; 97116-GP; 97161-GP; 97165-GO; G0378; G8978-GP-CJ; G8979-GP-CI; G8987-GO-CI; G8988-GO-CI; G8989-GO-CI; J1940; P9016; P9047; Q9967

== ENCOUNTER → 2018-04-21 | Outpatient (CLI) | payer OTHER | LOC: BHFA 13:30 | PROVIDERS: ATTEND Internal Medicine Interventional Cardiology | DX: R06.09 Other forms of dyspnea (principal); I25.10 Atherosclerotic heart disease of native coronary artery without angina pectoris | CPT/HCPCS: 78452; 93017; A9500; J2785 ==